=== PATIENT | male | born 1995 | race Two or more races ===

== ENCOUNTER 2021-02-15 23:24 | Emergency (ER) | payer MEDICAID, OTHER ==
[~2021-02-15] VITALS: Ht 170.2 cm; Wt 81.2 kg
[2021-02-16] MEDS ORDERED: ACETAMINOPHEN 325 MG TABLET PO ONE
[2021-02-16] MEDS ORDERED: IBUPROFEN 400 MG TABLET PO ONE
[2021-02-16 00:25] LABS: COVID AG,FIA SOURCE NASOPHARYNGEAL
[2021-02-16 00:47] LABS: INFLUENZA TYPE A NEGATIVE FOR TYPE A (NEGATIVE); INFLUENZA TYPE B NEGATIVE FOR TYPE B (NEGATIVE)
[2021-02-16 00:52] VITALS: BP 146/78
== END 2021-02-16 03:05 | disposition home or self-care (01) ==
LOC: EMS 23:26
DX: R50.9 Fever, unspecified (principal); R51.9 Headache, unspecified; Z20.822 Contact with and (suspected) exposure to COVID-19; F12.90 Cannabis use, unspecified, uncomplicated
CPT/HCPCS: 87426; 87804; 99283; U0003